=== PATIENT | female | born 1985 | race Caucasian/White ===

== ENCOUNTER 2019-08-15 19:47 | Emergency (ER) | payer MEDICAID ==
[~2019-08-15] VITALS: Ht 152.4 cm; Wt 83.0 kg
[2019-08-15 19:50] VITALS: BP_SYST 115
--- NOTE | 2019-08-15 20:03 | NUR ---
Patient to ER bed 8 to gown for evaluation. Side rails up. Report given to Lili NEAL.
--- NOTE | 2019-08-15 20:15 | NUR ---
Lab at bedside.
--- NOTE | 2019-08-15 20:40 | NUR ---
Pt presents to ER with with c/o intermittent vomiting. Pt estonian speaking only. Pt A&Ox4. Pt states she is 13 weeks with her third child. Pt states nausea and vomiting for 1 week intermittently. Pt states food and beverages are not tolerable. Pt states she was prescribed Reglan for nausea and she took it twice but felt anxious and dizzy. Pt denies pain, fever, vaginal bleeding. Will continue to monitor.
[2019-08-15 20:47] LABS: BASOPHILS % (AUTO) 0.4 % (0.0-2.0); EOSINOPHILS % (AUTO) 0.5 % (0.0-4.0); HEMATOCRIT 38.4 % (36-48); HEMOGLOBIN 13.5 g/dL (12.0-16.0); LYMPHOCYTES # (AUTO) 2.7 K/uL (1.0-5.5); LYMPHOCYTES % (AUTO) 33.6 % (20.5-51.5); MEAN CORPUSCULAR HEMOGLOBIN 32 pg (27-31); MEAN CORPUSCULAR HGB CONC 35 % (32-36); MEAN CORPUSCULAR VOLUME 90 fL (79.0-98.0); MONOCYTES # (AUTO) 0.3 K/uL (0.0-1.0); MONOCYTES % (AUTO) 4.3 % (1.7-9.3); NEUTROPHILS # (AUTO) 4.9 K/uL (1.8-7.7); NEUTROPHILS % (AUTO) 61.2 % (40.0-70.0); PLATELET COUNT (AUTO) 246 K/uL (130-430); RED BLOOD CELL COUNT(AUTO) 4.25 MIL/uL (4.2-6.2); RED CELL DISTRIBUTION WIDTH 12.8 % (9.0-15.0); WHITE BLOOD COUNT (AUTO) 8.1 K/uL (4.8-10.8)
[2019-08-15 21:04] LABS: CREATININE 0.45 mg/dL (0.55-1.30); POTASSIUM 3.3 mmol/L (3.5-5.1)
[2019-08-15 21:11] LABS: ALBUMIN 3.3 g/dL (3.4-4.8); TOTAL BILIRUBIN 0.6 mg/dL (0.0-1.0)
[2019-08-15] MEDS ORDERED: DIPHENHYDRAMINE INJ 50 MG/ML VIAL IVP ONE ×2 (22:00→23:00)
[2019-08-15] MEDS ORDERED: NACL 0.9% 1,000 ML IV ONE (22:00)
[2019-08-15] MEDS ORDERED: METOCLOPRAMIDE HCL 10 MG/2 ML VIAL IVP ONE (22:00)
[2019-08-15] MEDS ORDERED: D5NS 500 ML IV ONE (22:15)
--- NOTE | 2019-08-15 22:15 | NUR ---
ER Dr. Crook at bedside examining patient.
--- NOTE | 2019-08-15 22:26 | NUR ---
Pt medicated per MD Crook orders. Pt tolerated well.
--- NOTE | 2019-08-15 22:26 | NUR ---
Pt medicated with dextrose/sodium chloride. Medication administration began at 2225. Medication administration will end 99.
[2019-08-15] MEDS ORDERED: PROMETHAZINE INJ.Non-Formulary 25 MG/ML AMP IM ONE (22:30)
--- NOTE | 2019-08-15 23:30 | NUR ---
Assisted pt to restroom. Pt ambulated with steady gait. Pt provided specimen cup for urine sample.
[2019-08-15 23:31] LABS: HCG,QUANTITATIVE 92487 mIU/ML (0-6)
[2019-08-15 23:37] LABS: ACETONE, SERUM NEGATIVE (NEGATIVE)
--- NOTE | 2019-08-15 23:43 | NUR ---
Pt medicated per MD Crook orders. Pt tolerated well.
--- NOTE | 2019-08-16 00:23 | NUR ---
Per MD Crook, pt to be discharged once fluids are finished.
[2019-08-16 00:40] LABS: BILIRUBIN,URINE 1+ (NEGATIVE); BLOOD, URINE NEGATIVE (NEGATIVE); CLARITY/URINE CLEAR (CLEAR); COLOR,URINE YELLOW (YELLOW); GLUCOSE,URINE NEGATIVE (NEGATIVE); KETONES,URINE 3+ (NEGATIVE); LEUKOCYTE ESTERASE ,URINE TRACE (NEGATIVE); NITRITE, URINE NEGATIVE (NEGATIVE); PROTEIN URINE TRACE (NEGATIVE)
[2019-08-16 00:54] LABS: BACTERIA,URINE FEW /HPF (None Seen)
[2019-08-16 01:00] VITALS: BP_SYST 117
--- NOTE | 2019-08-16 01:00 | NUR ---
Dextrose Sodium Chloride ended. Pt recieved 750mL of dextrose sodium chloride via left hand IV.
--- NOTE | 2019-08-16 01:00 | NUR ---
Patient given written and verbal discharge instructions and verbalizes understanding. ER MD discussed with patient the results and treatment provided. Patient in stable condition. ID arm band removed. IV catheter removed intact and dressing applied, no active bleeding. No RX given. Patient educated on pain management and to follow up with PMD. Pain Scale 0/10. Opportunity for questions provided and answered.
== END 2019-08-16 01:00 | disposition home or self-care (01) ==
LOC: SED 19:47
DX: O21.8 Other vomiting complicating pregnancy (principal); O26.891 Other specified pregnancy related conditions, first trimester; R42 Dizziness and giddiness; Z3A.13 13 weeks gestation of pregnancy
CPT/HCPCS: 36415; 80053; 81000; 81025; 82009; 83690; 84702; 85025; 96361; 96374; 99283; J1200; J2550; J7030; J2765